=== PATIENT | female | born 1990 | race Caucasian/White ===

== ENCOUNTER 2019-12-17 09:18 | Outpatient (CLI) | payer OTHER, MEDICAID, SELFPAY ==
--- NOTE | 2019-12-17 09:29 | US_ITS ---
WS: [id number] TRANSABDOMINAL FIRST TRIMESTER ULTRASOUND HISTORY: ,PRIMIGRAVIDA DATING : 1 PARA: 0 COMPARISON: None available. FINDINGS: Cervical length is 7.1 cm; closed. Single live intrauterine . Viburnum rump length measuring 9.2 cm. Gestational sac measures 15w6d cm. cardiac tones 157 BPM. Estimated date of delivery 06/03/2020. Biparietal diameter the fetus 3.16 cm 15 weeks 6 days gestation Head circumference 11.84 cm 15 weeks 6 days gestation Abdominal circumference 9.39 cm 15 weeks 4 days gestation Femoral length 2.04 cm 16 weeks 1 day gestation. Right ovary measures 2.2 cm x 2.2 cm x 3.0 cm. Left ovary measures 2.3 cm x 2.0 cm x 2.8 cm. US/US OB <= 14 weeks fetus [id number] IMPRESSION: Interuterine at 15 weeks 6 days gestation SPECT the date of confinement June 03 2020 The visualized parts or developing satisfactory with no anomalies identif ied.
== END 2019-12-17 09:19 | disposition home or self-care (01) ==
LOC: RAD 09:24
PROVIDERS: Visit Provider Family Medicine
DX: Z36.87 Encounter for antenatal screening for uncertain dates (principal); Z3A.15 15 weeks gestation of pregnancy
CPT/HCPCS: 76801

== ENCOUNTER 2020-01-28 12:30 | Outpatient (CLI) | payer OTHER, MEDICAID, SELFPAY ==
--- NOTE | 2020-01-28 12:40 | US_ITS ---
WS: [id number] ULTRASOUND TRANSABDOMINAL HISTORY: ANATOMY CHECK/, PRIMIGRAVIDA : 1 PARA: 0 COMPARISON: None available. FINDINGS: Cervical length is 3.9 cm; closed. Placenta grade 0, anterior cardiac tones were not determined.. Anatomy evaluation shows normal stomach, kidneys, cervical spine, bilateral arms, bilateral legs, pro file the facial area appear to be normal. The bladder was normal, the views of the umbilical cord are seen. Normal cord insertion. The spinal and thoracic lumbar spine were normal. All 4 chambers of the heart are noted. In the brain the cerebellum appears to be normal the cisterna magna is well seen. An anterior placent a is noted. Biparietal diameter measures 5.0 cm, equals 21w0d. Head circumference measures 19.0 cm, equals 21w2d. Abdomen circumference measures 16.4 cm, equals 21w3d. Femur length measures 3.6 cm, equals 21w4d. Estimated gestational age 21w2d An estimated delivery 06/07/2020. Estimated weight 424 g. US/US OB >= 14 weeks fetus [id number] IMPRESSION: 1. Single live intrauterine uterines . Estimated gestational age 21w 2d and estimated delivery 06/07/2020. Anatomical survey appears to be within normal limits.
== END 2020-01-28 12:31 | disposition home or self-care (01) ==
LOC: RAD 12:35
PROVIDERS: PCP Family Medicine; Visit Provider Family Medicine
DX: Z34.92 Encounter for supervision of normal pregnancy, unspecified, second trimester; Z3A.21 21 weeks gestation of pregnancy
CPT/HCPCS: 76805

== ENCOUNTER 2020-05-04 07:52 | Outpatient (CLI) | payer OTHER, MEDICAID, SELFPAY ==
--- NOTE | 2020-05-04 | US_ITS ---
WS: [id number] ULTRASOUND OB LIMITED TECHNIQUE: Limited ultrasound examination of the fetus. CLINICAL INFORMATION: EFW FRIDA COMPARISON: January 28, 2020 FINDINGS: Cervix measures 3.9 cm Single interuterine gestation. presentation is vertex Placental location is anterior. Placenta grade: 0. heart rate 150 BPM. Anatomy: BDP: 8.8 cm = 35w3d HC: 31.5 cm = 35w3d AC: 30.0 cm = 34w0d FEMUR LENGTH: 7.0 cm = 35w5d Estimated weight: 2501 g EGA by ultrasound: 35w1d SHE by ultrasound: 06/07/2020 [place] [id number] IMPRESSION: 1. Single intrauterine gestation with vertex presentation. 2. Normal FRIDA. 3. Estimated gestational age 35 weeks 1 day with estimated delivery May 4. Cervix measures 3.9 CM.
== END 2020-05-04 07:53 | disposition home or self-care (01) ==
LOC: US 07:52
PROVIDERS: PCP Family Medicine; Visit Provider Family Medicine
DX: Z36.4 Encounter for antenatal screening for fetal growth retardation (principal); Z3A.35 35 weeks gestation of pregnancy
CPT/HCPCS: 76816

== ENCOUNTER 2020-06-10 12:50 | Inpatient (IN) | payer OTHER, MEDICAID, SELFPAY ==
[2020-06-10] VITALS (51 sets, daily range): BP systolic 0–152; BP diastolic 0–105; PULSE 71–130; RESP 14–17; TEMP 36.2–36.7; O2SAT 96–100; BMI 28.5
[2020-06-10] MEDS: dextrose 5%-lactated ringers 1,000 ML 125 ML IV (14:23)
[2020-06-10 14:31] LABS: Basophils % 0.2 %; Eosinophils # 0.1 10^3/uL (0.0-0.8); Eosinophils % 0.9 %; Hematocrit 41.1 % (37.0-47.0); Hemoglobin 13.5 g/dL (11.5-15.3); Lymphocytes # 1.2 10^3/uL (0.8-4.8); Lymphocytes % 11.5 %; Mean Corpuscular HGB Conc 32.8 g/dL (30.0-36.0); Mean Corpuscular Hemoglobin 31.8 pg (28.0-34.0); Mean Corpuscular Volume 96.7 fL (81-99); Mean Platelet Volume 10.3 fL (7.4-10.4); Monocytes # 0.8 10^3/uL (0.2-0.9); Monocytes % 7.4 %; Neutrophils % 79.3 %; Nucleated Red Blood Cells % 0 %; Platelet Count 257 10^3/cmm (130-400); Red Blood Count 4.25 10^6/uL (4.1-5.3); Red Cell Distribution Width 12.7 % (12.1-15.1); White Blood Count 10.6 10^3/uL (4.0-10.0)
[2020-06-10 14:40] LABS: Amphetamines Screen Urine Negative (Negative); Barbiturates Screen Urine Negative (Negative); Benzodiazepines Screen Urine Negative (Negative); Cocaine Screen Urine Negative (Negative); Opiate Screen Urine Negative (Negative); PCP Screen Urine Negative (Negative); THC Screen Urine Negative (Negative)
[2020-06-10] MEDS: oxytocin 30 UNIT/500 ML BAG IV (16:57)
--- NOTE | 2020-06-10 16:58 | P.HP_ITS ---
Providers/Chief Complaint Admitting Physician: Cruz Prakash MD Primary Care Provider: Cruz Prakash MD Chief Complaint: INDUCTION OF LABOR, POST DATES History of Present Illness Elke Suero is a 30 year old G1, P0 at 40.6 weeks gestation by 15-week ultrasound inconsistent with unsure LMP. Her is complicated by THC use during , anxiety. The patient presents to labor delivery secondary to induction of labor for postdates. The patient has been feeling well. She denies any fevers, chest pains, shortness of breath, nausea, vomiting, diarrhea, constipation. She denies any leakage of fluid, vaginal bleeding and dysuria. She has been in her normal state of health. Medications/Allergies Home Medications Medication Instructions Recorded Confirmed Last Taken Type vit no.[id number] 1 tab PO DAILY 06/10/20 06/10/20 06/09/20 15:00 History [ Vitamin] Allergies Allergy/AdvReac Type Severity Reaction Status Date / Time No Known Allergies Allergy Verified 06/10/20 14:35 PFSH Acute PFSH: Family History (Updated 06/10/20 @ 17:01 by Cruz Prakash MD) Mother Cancer, Onset Age: 55 Breast cancer Social History (Updated 06/10/20 @ 17:02 by Cruz Prakash MD) Smoking and tobacco status: former smoker Alcohol intake: former Substance/Drug Use: unknown Female Reproductive History: Date of last menstrual period: 09/13/19 : 1 Vitals/I&O/Wt Last Vital Signs Pulse 114 H 06/10/20 16:47 BP 152/92 06/10/20 16:47 Pulse Ox 96 06/10/20 13:57 Weight last 48 hrs Weight 166 lb Physical Exam Narrative: EXAM NARRATIVE: General: Alert and oriented x3 Eyes: Pupils equal round and reactive to light and accommodation Mouth: Mucous membranes moist, pharynx non-erythematous Cardiac: Regular rate and rhythm without murmurs Lungs: Clear to auscultation bilaterally without wheezes, crackles or rhonchi Abdomen: Soft, non-tender, fundus consistent with gestational age Extremities: Trace edema in the bilateral lower extremities Data : 06/10/20 14:00 A&P Additional A&P Information The patient's initial cervical exam is fingertip, thick and high and the initial plan was to start Cytotec, however there have been some decelerations present. heart tones are currently in the mid 150s with moderate variability and good accelerations but there have been a handful of decelerations into the 110- 120 range. These are relatively unprovoked, however usually secondary to the patient lying on her back. The patient is not showing signs of contractions on the monitor. She is feeling well. I spoke with the patient regarding these findings and that I would not recommend Cytotec as it cannot be easily removed. I spoke with the patient and her significant other at length regarding possible causes and the need to closely monitor. We discussed options of trying induction with IV Pitocin as it can be shut off quickly versus going for section with concerning decelerations. We have decided to try starting with Pitocin at a low dose and moving up slowly. If there are signs of further concerns, then we will plan for proceeding with a primary low transverse section. I expressed my concerns with the patient and feel that it is safe to try a trial of labor, however we will have a relatively low threshold for proceeding with due to findings on the monitor. I am uncertain of the cause but suspect that if this persists it could be due to a knot in the cord or placental issue. The patient is GBS negative. Her Covid swab was n egative yesterday. Proceed with the above plan for now. All questions were answered. The patient and her significant other are in agreement with the current plan of care. Attestations Medical Necessity Statement*: The patient will be here for greater than 2 midnights due to intrapartum and post management of labor and delivery. Coding Level of Care Code Acute Assistant Professor Sculpture for Tre Harris
--- NOTE | 2020-06-10 17:38 | PC.NURSE ---
Pt here for induction at 1300. Pt had reactive tracing, SVE was not favorable. Dr Prakash ordered cytotec. Pt then began having decels, Dr Prakash notified and orders to hold cytotec and he reviewed tracing and came to floor to review tracing and talk with pt. at 1645 orders for low dose pitocin which was started at 1700. Dr Prakash remained on floor watching tracing.
--- NOTE | 2020-06-10 18:14 | PM.MISC ---
Miscellaneous Note Purpose of Documentation: We try adding IV Pitocin, however the patient began to have decelerations again followed by minimal variability. For this reason we will proceed with a primary low transverse section secondary to intolerance of labor with nonreassuring heart tones. I discussed this with the patient and her significant other and they are in agreement at this time.
[2020-06-10] MEDS: metoclopramide 5 mg/mL SDV 2 mL 10 MG IVP (18:19)
[2020-06-10] MEDS: famotidine 20 mg/2 mL INJ IVP (18:19)
[2020-06-10] MEDS: citric acid-sodium citrate 30 mL UDC PO (18:19)
[2020-06-10] MEDS: lactated ringers 1,000 ML 999 ML IV (18:20)
--- NOTE | 2020-06-10 18:25 | ANES.PREANE2 ---
Pre-Anesthetic Assessment Pre-Anesthetic Assessment: Height/Weight: Height 1.63 m Weight 75.296 kg Temp Pulse Resp BP Pulse Ox 97.4 F L 109 H 16 122/78 96 06/10/20 17:00 06/10/20 18:17 06/10/20 17:00 06/10/20 18:17 06/10/20 13:57 Preop Diagnosis: IUP Proposed Procedure: Familial anesthetic complications: None Was Beta Nayely taken within 24 hours: N/A Last intake: Intake Last Liquid Date 06/10/20 Last Liquid Time 12:30 ([employer]) Last Solid Date 06/10/20 Last Solid Time 12:30 Social: Social History: No alcohol and No tobacco Exam: Pre-Anes Outpt Exam: alert, oriented x 3, clear to auscultation bilaterally and regular rate & rhythm Airway: Cervical ROM: WNL MP: 2 Dentition: Full Anesthetic Plan: ASA status: 2 Anesthesia: Regional (specify below) (spinal) Risk of > 500 ml blood loss (7ml/kg in children): Yes, adequate IV access and fluids planned Meds/Allergies Current Medications: Current Medications Generic Name Dose Route Start Last Admin Trade Name Freq PRN Reason Stop Dose Admin Dextrose/Lactated Ringer's 1,000 mls @ 125 m ls/hr 06/10/20 13:45 06/10/20 17:37 Dextrose 5%-Lact ated Ringers IV 125 mls/hr .Q8H PRN Infusion per label comment s Oxytocin 30 unit in 500 ml s @ 1 mls/hr 06/10/20 15:45 06/10/20 17:30 Pitocin IV 3 milliunit/min .Q24H DELMA 3 mls/hr Titration Protocol 1 MILLIUNIT/MIN Lactated Ringer's 1,000 mls @ 999 m ls/hr 06/10/20 18:08 06/10/20 18:20 Lactated Ringers IV 06/10/20 19:08 999 mls/hr .Q1H1M ONE Administration Misoprostol 25 mcg 06/10/20 13:45 06/10/20 17:37 Cytotec VAGINAL 06/10/20 21:46 Not Given Q4H DELMA PFSH Anesthesia PFSH: Family History (Updated 06/10/20 @ 17:01 by Cruz Prakash MD) Mother Cancer, Onset Age: 55 Breast cancer Social History (Updated 06/10/20 @ 17:02 by Crzu Prakash MD) Smoking and tobacco status: former smoker Alcohol intake: former Substance/Drug Use: unknown Female Reproductive History: Date of last menstrual period: 09/13/19 : 1 Data Anesthesia CBC & Chem 7: 06/10/20 14:00 Other Labs: Laboratory Results - last 48 hr 06/10/20 06/10/20 14:00 14:00 WBC 10.6 H RBC 4.25 Hgb 13.5 Hct 41.1 MCV 96.7 MCH 31.8 MCHC 32.8 RDW 12.7 Plt Count 257 MPV 10.3 Neut % (Auto) 79.3 Lymph % (Auto) 11.5 [place] % (Auto) 7.4 Eos % (Auto) 0.9 Baso % (Auto) 0.2 Neut # (Auto) 8.40 H Lymph # (Auto) 1.2 [place] # (Auto) 0.8 Eos # (Auto) 0.1 Baso # (Auto) 0.0 Nucleated RBC % (auto) 0 Nucleated RBCs # 0.0 Urine Opiates Screen Negative Ur Barbiturates Screen Negative Ur Phencyclidine Scrn Negative Ur Amphetamines Screen Negative U Benzodiazepines Scrn Negative Urine Cocaine Screen Negative U Marijuana (THC) Screen Negative Cardiac Studies: No Data to Display
--- NOTE | 2020-06-10 20:15 | P.OP_ITS ---
Operative Report Date of procedure: June 10, 2020 Pre-op Diagnosis: IUP Pre-op Diagnosis: 1. Intrauterine at 40.6 weeks gestation 2. THC use during 3. Anxiety 4. intolerance of labor with nonreassuring heart tones Post-op Diagnosis: 1. Intrauterine at 40.6 weeks gestation 2. THC use during 3. Anxiety 4. intolerance of labor with nonreassuring heart tones 5. Delivery of healthy infant female weighing 5 pounds 13 ounces with Apgars of 8 and 9 Post-op Findings: Placenta and umbilical cord is stained with meconium and has thickened area at the periphery consistent with nonfunctioning portion of placenta. Oligohydramnios clinically. Procedure Done: Primary low transverse section Specimens removed/disposition: Placenta sent to pathology Surgeon: Cruz Prakash Anesthesia: Other (Spinal) Estimated blood loss (mL): 600 Complications: None Condition: stable Disposition: floor Brief History: Elke Suero is a 30 year old G1, P0 at 40.6 weeks gestation by 15-week ultrasound inconsistent with unsure LMP. Her is complicated by THC use during , anxiety. The patient presented on the afternoon of 06/10/2020 for induction for postdates. Upon presentation there were decelerations that were intermittent with good variability in between. Because of the concern for decelerations, Cytotec was not placed as planned as the patient's cervix was only fingertip and thick. For this reason I discussed with the patient about possibly starting Pitocin to see if the baby would tolerate this. Even with just 3 units, the had further decelerations and minimal variability in between. For this reason it was felt that it would not be safe to proceed with induction of labor. The patient was set up for a primary low transverse section due to intolerance of labor with nonreassuring heart tones. Procedure: After informed consent was obtained, the patient was taken to the operating room and the patient was prepped and draped in a normal sterile fashion in the dorsal supine position. A spinal epidural was placed and adequate anesthesia was confirmed. At 1901 p.m. on 06/10/2020, a Pfannenstiel skin incision was made and carried through to the underlying layer of fascia using a scalpel. The fascial incision was then extended laterally using curved Mayos. The fascia was then grasped with Yuliya clamps and the underlying rectus muscles were dissected off taking care to avoid injury to the underlying tissues. The peritoneum was entered bluntly with one digit. It was then bluntly. The bladder blade was placed and the vesicouterine peritoneum was well below the lower uterine segment of the uterus. The uterine incision was made in the lower uterine segment in a transverse fashion with the scalpel at 1904 p.m. The amniotic membrane was entered bluntly and a very small amount of thick meconium stained fluid was noted. The 's head delivered atraumatically without difficulty at 1905 on 06/10/2020. There was no nuchal cord. The mouth and nose were suctioned. The rest of the delivered without difficulty. The infant was crying immediately upon delivery. The cord was clamped and cut and the infant was handed to the awaiting pediatric nurses. The placenta was then manually expressed. The uterus was then exteriorized from the abdomen and a wet lap was used to clear the uterus of clots and debris. The bladder blade was reinserted and the uterine incision was closed using 0 chromic in a running locking fashion. A second layer of the same suture was used in the same manner. Excellent hemostasis was obtained. Next the posterior cul-de-sac was inspected and was cleared of any blood. The uterus was then placed back into the abdomen. The gutters were cleared of any further clots and debris and the uterine incision was again inspected and hemostasis was noted. The subfascial tissue was inspected for hemostasis and th e peritoneum was re-approximated using 2-0 plain in a running fashion. The fascia was then re-approximated using 0 Vicryl in a running fashion. The subcutaneous tissue was inspected for hemostasis. Sheryl's fascia was then re- approximated using 3-0 plain in a running fashion. Good hemostasis was noted. The subcutaneous tissue was then re-approximated using a subcuticular stitch. The patient tolerated the procedure well and was recovered in stable condition. Estimated blood loss was 600 mL. Urine in the Dia catheter was clear. The placenta was examined and was stained with meconium. On the periphery there was an area that was thickened and firm concerning for a nonfunctioning portion of the uterus. The umbilical cord showed signs of meconium stained fluid. The infant was strongly stained with meconium. The patient was taken to recovery in good condition. Associated Problem List Diagnoses (1) intolerance to labor, delivered, current hospitalization: (2) Intrauterine :
[2020-06-11] VITALS (7 sets, daily range): BP systolic 120–129; BP diastolic 67–83; PULSE 104–121; RESP 14–16; TEMP 36.8
[2020-06-11] MEDS: ketorolac 30 mg/mL INJ IVP ×2 (02:00→09:11)
[2020-06-11] MEDS: prenatal vitamin Capsule 1 CAP PO (09:11)
[2020-06-11] MEDS: docusate sodium 100 mg Capsule PO ×2 (09:11→18:10)
[2020-06-11] MEDS: ferrous sulfate EC 325 mg Tablet PO (09:12)
--- NOTE | 2020-06-11 10:00 | P.ANESPOST_ITS ---
Inpatient post-anesthesia follow up: Airway intact: Yes Vital signs: Temperature 98.2 F Pulse Rate 98 Respiratory Rate 16 Blood Pressure 128/78 Pulse Oximetry 98 Oxygen Delivery Me thod Room Air Oxygen Flow Rate Fraction of Inspir ed Oxygen Hydration adequate: Yes Nausea and vomiting: No Pain level: 2 Mental status: Baseline Additional Comments: No signs of infection at neuraxial site, urinating without gasca, no headaches, no numbness/weakness of lower ex tremities
[2020-06-11 10:38] LABS: Hematocrit 32.1 % (37.0-47.0); Hemoglobin 10.5 g/dL (11.5-15.3); Mean Corpuscular HGB Conc 32.7 g/dL (30.0-36.0); Mean Corpuscular Hemoglobin 31.8 pg (28.0-34.0); Mean Corpuscular Volume 97.3 fL (81-99); Mean Platelet Volume 10.3 fL (7.4-10.4); Platelet Count 197 10^3/cmm (130-400); Red Cell Distribution Width 12.7 % (12.1-15.1); White Blood Count 14.4 10^3/uL (4.0-10.0)
--- NOTE | 2020-06-11 15:46 | P.PN_ITS ---
Subjective Subjective: Interval history: The patient is feeling well today. Her pain is well controlled. She is ambulating, voiding, passing gas and tolerating liquids by mouth. The patient's bleeding is decreasing well. Vitals/I&O/Wt Last Vital Signs Temp 98.3 F 06/11/20 02:45 Pulse 116 H 06/11/20 11:00 Resp 16 06/11/20 11:00 BP 126/81 06/11/20 11:00 Pulse Ox 98 06/10/20 23:45 06/11/20 06/11/20 06/11/20 06:59 14:59 22:59 Intake Total 1645.833 / 1645.833 Output Total 450 / 1250 1000 / 1000 Balance -450 / 654.717 645.833 / 645.833 Weight last 48 hrs Weight 166 lb Physical Exam Narrative: EXAM NARRATIVE: General: Alert and oriented x3 Eyes: Pupils equal round and reactive to light and accommodation Mouth: Mucous membranes moist, pharynx non-erythematous Cardiac: Regular rate and rhythm without murmurs Lungs: Clear to auscultation bilaterally without wheezes, crackles or rhonchi Abdomen: Soft, mild to moderate tenderness with palpation, fundus is firm and midline and 2 cm below the umbilicus. Extremities: Trace edema in the bilateral lower extremities Urinary Catheter Management^: Dia: Cath Placed During This Visit: yes, but has since been removed by the nurse Reason for Continuing Indwelling Catheter: Perioperative Use in Selected Surgeries Urinary Catheter Date of Insertion: 06/10/20 Urinary Catheter Time of Insertion: 18:58 Date Urinary Catheter Removed: 06/11/20 Time Urinary Catheter Discontinued: 11:15 Data : 06/11/20 10:10 A&P Assessment and plan (1) intolerance to labor, delivered, current hospitalization: Status: Acute (2) Intrauterine : Status: Acute Additional A&P Information The patient is doing well status post primary low transverse section on 06/10/2020 secondary to intolerance of labor. Her incision is healing well. She is showing no signs of complications at this time. We will proceed with routine post care. Routine instructions were discussed. All questions were answered. If the patient continues to do well, will plan for discharge home tomorrow. The patient and her significant other are in agreement with the current plan of care. Attestations Medical Necessity Statement*: The patient will be here for greater than 2 midnights due to routine intrapartum and management of labor and delivery. Coding Level of Care Code Acute Appeals [employer] Associate Justice for Chg Fwd Diagnoses intolerance to labor, delivered, current hospitalization O77.9 Intrauterine Z34.90
[2020-06-11] MEDS: acetaminophen 325 mg Tablet 650 MG PO (16:56)
[2020-06-11] MEDS: ibuprofen 800 mg tablet PO (23:48)
[2020-06-12 04:45] VITALS: BP 128/78; PULSE 98; RESP 16
--- NOTE | 2020-06-12 08:00 | PM.DCS ---
Discharge Providers Date of Admission: 06/10/20 12:50 Date of Discharge: June 12, 2020 Attending Provider at Admission: Cruz Prakash MD Attending Provider at Discharge: Cruz Prakash MD Primary Care Provider: Cruz Prakash MD Diagnoses at Discharge Discharge Diagnosis (1) intolerance to labor, delivered, current hospitalization: Status: Resolved (2) Intrauterine : Status: Resolved Other Information Additional DC diagnoses/information: 1. Intrauterine status post primary low transverse section at 40.6 weeks gestation 2. THC use during 3. Anxiety 4. intolerance of labor with nonreassuring heart tones 5. Delivery of healthy infant female weighing 5 pounds 13 ounces with Apgars of 8 and 9 Reason for Visit Reason for Visit: INDUCTION OF LABOR, POST DATES Hospital Course Hospital Course Brief History: Elke Suero is a 30 year old G1 now P1 s/p primary low transverse section at 40.6 weeks gestation by 15-week ultrasound inconsistent with unsure LMP. Her wass complicated by THC use during , anxiety, intolerance of labor with non-reassuring FHT's, clinically oligohydramnios. The patient presented on the afternoon of 06/10/2020 for induction for postdates. Upon presentation there were decelerations that were intermittent and there was good variability in between. Because of the concern for decelerations, Cytotec was not placed as planned as the patient's cervix was only fingertip and thick. For this reason I discussed with the patient about possibly starting Pitocin to see if the baby would tolerate this. Even with just 3 units, the had further decelerations and minimal variability in between. For this reason it was felt that it would not be safe to proceed with induction of labor. The patient was set up for a primary low transverse section due to intolerance of labor with nonreassuring heart tones. The patient had a pLTCS without complication. There were signs of oligohydramnios clinically and meconium staining. The patient has done well and her bleeding is decreasing well. Her pain is well controlled. She is ambulating, voiding and tolerating food by mouth. We discussed routine post- care instructions. All questions were answered. The patient and her significant other are in agreement with the current plan of care. Physical Exam Narrative: EXAM NARRATIVE: General: Alert and oriented x3 Eyes: Pupils equal round and reactive to light and accommodation Mouth: Mucous membranes moist, pharynx non-erythematous Cardiac: Regular rate and rhythm without murmurs Lungs: Clear to auscultation bilaterally without wheezes, crackles or rhonchi Abdomen: Soft, mild to moderate tenderness with palpation, fundus is firm and midline and 2 cm below the umbilicus. Extremities: Trace edema in the bilateral lower extremities Urinary Catheter Management^: Dia: Cath Placed During This Visit: yes, but has since been removed by the nurse Reason for Continuing Indwelling Catheter: Perioperative Use in Selected Surgeries Urinary Catheter Date of Insertion: 06/10/20 Urinary Catheter Time of Insertion: 18:58 Date Urinary Catheter Removed: 06/11/20 Time Urinary Catheter Discontinued: 11:15 Discharge Data Data Completed and Pending: Pending at discharge Category Date Time Status Pathology: Surgic al [PTH] Routine Pth 06/10/20 21:38 Received Labs from last 24 hours 06/11/20 10:10 WBC 14.4 H RBC 3.30 L Hgb 10.5 L Hct 32.1 L MCV 97.3 MCH 31.8 MCHC 32.7 RDW 12.7 Plt Count 197 MPV 10.3 Vitals: Last Vital Signs Temp 98.2 F 06/11/20 16:00 Pulse 98 06/12/20 04:45 Resp 16 06/12/20 04:45 BP 128/78 06/12/20 04:45 Pulse Ox 98 06/10/20 23:45 Discharge Plan Discharge Patient Disposition: Home Condition: Good Prescriptions: New ibuprofen 800 mg Tablet 800 mg PO TID Qty: 60 RF: 0 oxycodone-acetaminophen 5-325 mg Tablet 1 tab PO Q6H PRN (Reason: Moderate To Severe Pain) Qty: 15 RF: 0 ferrous sulfate 325 mg (65 mg iron) Tablet,Delayed Release (Dr/Ec) 325 mg PO BIDWM Qty: 30 RF: 0 Continued Vitamin 27 mg iron- 800 mcg Tablet 1 tab PO DAILY RF: 0 Referrals: Cruz Prakash MD [Primary Care Provider] - 7-10 days Discharge Diet: Regular Discharge Activity: Limit activity as instructed Patient Instructions: Your Baby (DC), Expression, Collection and Storage of Breastmilk (DC), How to Hold and Breastfeed Your Baby (DC), and Nipple Soreness (DC), Breast Fullness Versus Breast Engorgement (GEN), and Plugged Ducts (DC), How to Increase Your Milk Supply (DC), How to Tell if Your Baby is Getting Enough Breast Milk (DC), OB [facility] - [facility], Abnormal Bleeding, Depression Activity Restrictions/Additional Instructions: If you have any concern for infection in your incision site, please seek immediate medical attention. Nothing per vagina for 6 weeks. No swimming or baths for 6 weeks, however showers are okay. Discharge Attestations Time Spent in Discharge Care*: greater than 30 min Quality Metrics Clinical Quality Measures During this hospital stay, did patient experience: None Coding Level of Care Code Acute Sales And Leasing Agent for Chg Fwd Diagnoses intolerance to labor, delivered, current hospitalization O77.9 Intrauterine Z34.90
[2020-06-12] MEDS: ibuprofen 800 mg tablet PO ×2 (08:42→14:35)
[2020-06-12] MEDS: docusate sodium 100 mg Capsule PO ×2 (08:43→17:05)
[2020-06-12] MEDS: ferrous sulfate EC 325 mg Tablet PO ×2 (08:43→17:05)
[2020-06-12] MEDS: prenatal vitamin Capsule 1 CAP PO (08:43)
[2020-06-12 09:51] VITALS: BP 119/81; PULSE 130; RESP 16; TEMP 36.9; O2SAT 99
[2020-06-12] MEDS: lanolin oint 7 gm 1 APPLIC TOPICAL (14:35)
[2020-06-12 17:10] VITALS: BP 123/83; PULSE 130; RESP 16; TEMP 37; O2SAT 100
[2020-06-12 17:40] VITALS: BP 123/83; PULSE 130; RESP 16; TEMP 37; O2SAT 100
== END 2020-06-12 17:42 | disposition home or self-care (01) | DRG 787 ==
PROVIDERS: Admitting Provider Family Medicine; PCP Family Medicine; Visit Provider Family Medicine
PROC: 10D00Z1 Extraction of Products of Conception, Low, Open Approach (ICD-10-PCS; CPT 59514; principal; 2020-06-10 18:30)
DX: O76 Abnormality in fetal heart rate and rhythm complicating labor and delivery (principal); O99.324 Drug use complicating childbirth; O41.03X0 Oligohydramnios, third trimester, not applicable or unspecified; Z3A.40 40 weeks gestation of pregnancy; Z37.0 Single live birth; Z87.891 Personal history of nicotine dependence; F12.90 Cannabis use, unspecified, uncomplicated; O99.344 Other mental disorders complicating childbirth; F41.9 Anxiety disorder, unspecified; O77.0 Labor and delivery complicated by meconium in amniotic fluid
CPT/HCPCS: 12345; 36415; 51702; 59025; 59409; 80306; 85025; 85027; 88307; 96375; 98960; J0690; J1885; J2250; J2274; J2704; J2765; J3010; J3490; J7030

== ENCOUNTER → 2021-03-23 14:27 | Outpatient (BNVA) | payer BC, MEDICAID, SELFPAY | PROVIDERS: PCP Registered Nurse; Visit Provider Psychiatry & Neurology Psychiatry | DX: F43.12 Post-traumatic stress disorder, chronic (principal); F41.1 Generalized anxiety disorder; F33.1 Major depressive disorder, recurrent, moderate | CPT/HCPCS: 99204 ==

== ENCOUNTER → 2022-03-22 14:33 | Outpatient (BNVA) | payer BC, MEDICAID, SELFPAY | PROVIDERS: PCP Registered Nurse; Visit Provider Obstetrics & Gynecology | DX: Z01.419 Encounter for gynecological examination (general) (routine) without abnormal findings (principal); N64.3 Galactorrhea not associated with childbirth | CPT/HCPCS: 84146; 84443; 87624 ==

== ENCOUNTER → 2022-05-05 15:36 | Outpatient (BNVA) | payer BC, MEDICAID, SELFPAY | PROVIDERS: PCP Registered Nurse; Visit Provider Obstetrics & Gynecology | DX: D39.0 Neoplasm of uncertain behavior of uterus (principal) | CPT/HCPCS: 76830 ==

== ENCOUNTER → 2022-09-04 13:48 | Outpatient (BNVA) | payer BC, MEDICAID, SELFPAY | PROVIDERS: PCP Registered Nurse; Visit Provider Registered Nurse | DX: J11.1 Influenza due to unidentified influenza virus with other respiratory manifestations (principal); R50.9 Fever, unspecified | CPT/HCPCS: 87400; 87426 ==